=== PATIENT | female | born 1965 | race American Indian/Alaskan Native ===

== ENCOUNTER 2021-02-13 14:18 | Emergency (ER) | payer SELFPAY ==
--- NOTE | 2021-02-13 15:25 | EDM.PDOC ---
ED HPI GENERAL MEDICAL PROBLEM - General Chief Complaint: Lower Extremity Injury/Pain Stated Complaint: FELL DOWN STAIRS,HURT KNEE,LIVER ISSUES Time Seen by Provider: 02/13/21 15:10 Source of Information: Reports: Patient, Family History Limitations: Reports: No Limitations - History of Present Illness INITIAL COMMENTS - FREE TEXT/NARRATIVE: 55-year-old female who fell at their cabin about 2 hours ago onto her right knee, injuring her right knee, distal thigh and proximal lower leg. She has a small abrasion on her knee. She says her knee is "swollen". She is able to bear weight with pain. No other injury. Onset: Sudden Duration: Hour(s): (2 hours ago) Location: Reports: Lower Extremity, Right Worsens with: Reports: Other (Weightbearing is difficult but possible), Movement Associated Symptoms: Reports: Other (She is worried about her "fatty liver".) Right Upper Leg Pain Score (Numeric/FACES): 8 - Related Data Allergies Allergy/AdvReac Type Severity Reaction Status Date / Time Iodinated Contrast Media Allergy Rash Verified 02/13/21 14:44 Home Meds: Home Meds Alogliptin Benzoate [Alogliptin] 25 mg PO DAILY 02/13/21 [History] Cholecalciferol (Vitamin D3) [Vitamin D3] 2,000 unit PO ASDIRECTED 02/13/21 [History] Diloxitine 1 dose PO DAILY 02/13/21 [History] Fluticasone Propion/Salmeterol [Wixela 100-50 Inhub] 1 each IH ASDIRECTED 02/13/21 [History] Furosemide [Lasix] 20 mg PO BID 02/13/21 [History] Gabapentin [Neurontin] 600 mg PO QID 02/13/21 [History] Insulin Detemir [Levemir] 30 units SQ DAILY 02/13/21 [History] Magnesium Oxide/Mag AA Chelate [Magnesium] 600 mg PO BID 02/13/21 [History] Omeprazole 20 mg PO DAILY 02/13/21 [History] Spironolactone 50 mg PO BID 02/13/21 [History] hydrOXYzine HCL [Atarax] 0 mg PO TID 02/13/21 [History] lisinopriL [Lisinopril] 5 mg PO DAILY 02/13/21 [History] oxyCODONE 10 mg PO Q4HR 02/13/21 [History] oxyCODONE ER [OxyCONTIN] 15 mg PO Q12HR 02/13/21 [History] Past Medical History Cardiovascular History: Reports: Heart Failure, Hypertension Respiratory History: Reports: COPD Gastrointestinal History: Reports: Cholelithiasis, Cirrhosis, Fatty Liver, GERD Genitourinary History: Reports: Renal Calculus Musculoskeletal History: Reports: Arthritis, Back Pain, Chronic, Fibromyalgia Neurological History: Reports: Neuropathy, Diabetic Psychiatric History: Reports: Depression, PTSD Endocrine/Metabolic History: Reports: Diabetes, Type II Hematologic History: Reports: Other (See Below) Other Hematologic History: von willibrand. vit D deficiency Oncologic (Cancer) History: Reports: None Dermatologic History: Reports: None - Infectious Disease History Infectious Disease History: Reports: Chicken Pox, Other (See Below) Other Infectious Disease History: strep throat - Past Surgical History Respiratory Surgical History: Reports: Thoracentesis Other Respiratory Surgeries/Procedures: right lung several times GI Surgical History: Reports: Cholecystectomy, Other (See Below) Other GI Surgeries/Procedures: paracentesis Female Surgical History: Reports: Section, Hysterectomy Neurological Surgical History: Reports: Lumbar Spine Social & Family History - Tobacco Use Tobacco Use Status *Q: Unknown Ever Used Tobacco Years of Tobacco use: 35 Packs/Tins Daily: 1 - Caffeine Use Caffeine Use: Reports: None - Recreational Drug Use Recreational Drug Use: No Review of Systems - Review of Systems Review Of Systems: See Below Constitutional: Denies: Fever Respiratory: Denies: Shortness of Breath Cardiovascular: Denies: Chest Pain Musculoskeletal: Reports: Back Pain Skin: Reports: Bruising (Slight bruising around the knee with a superficial abrasion over the patella) ED EXAM, GENERAL - Physical Exam Exam: See Below Exam Limited By: No Limitations General Appearance: Alert, No Apparent Distress (Looks uncomfortable but not distressed) Eye Exam: Bilateral Eye: Normal Inspection Head: Atraumatic Respiratory/Chest: Lungs Clear Cardiovascular: Regular Rate, Rhythm Extremities: Other (Right knee was compared to the left knee, there is no effusion but there is tenderness to palpation across the patella and medial knee. There is increased pain with valgus stress to the knee) Neurological: Alert, Oriented Skin Exam: Warm, Dry, Other (Small abrasion is present over the right patellar area. A few healing scratches are present on the distal right leg from her recent cat scratch) Course - Vital Signs Last Recorded V/S: Last Vital Signs Temp 97.9 F 02/13/21 15:12 Pulse 97 02/13/21 15:12 Resp 20 02/13/21 15:12 BP 123/68 02/13/21 15:12 Pulse Ox 95 02/13/21 15:12 - Orders/Labs/Meds Orders: Active Orders 24 hr Category Date Time Status DME for Discharge [COMM] Stat Oth 02/13/21 15:51 Ordered - Re-Assessments/Exams Free Text/Narrative Re-Assessment/Exam: 02/13/21 15:51 Right knee and right femur x-rays were obtained which are negative for fracture. A 6 inch Doc wrap was applied to the leg and she was fitted for crutches. She can increase activity as tolerated and recheck next week if not improving satisfactorily. Departure - Departure Time of Disposition: 16:03 Disposition: Home, Self-Care 01 Clinical Impression: Contusion of right knee Qualifiers: Encounter type: initial encounter Qualified Code(s): S80.01XA - Contusion of right knee, initial encounter - Discharge Information Instructions: Contusion, [id number] Referrals: PCP,None [Primary Care Provider] - Forms: ED Department Discharge Care Plan Goals: Ice to sore areas will be helpful the next 1 to 2 days, wrap for support and comfort and increase activity as tolerated. Consider rechecking next week when you are home if not improving satisfactorily. Sepsis Event Note (ED) - Evaluation Sepsis Screening Result: No Definite Risk - Focused Exam Vital Signs: Vital Signs Temp Pulse Resp BP Pulse Ox 02/13/21 15:12 97.9 F 97 20 123/68 95 02/13/21 15:08 97.9 F 97 20 123/68 95 02/13/21 14:38 97.9 F 97 20 123/68 95 - My Orders Last 24 Hours: My Active Orders 02/13/21 15:51 DME for Discharge [COMM] Stat - Assessment/Plan Last 24 Hours: My Active Orders 02/13/21 15:51 DME for Discharge [COMM] Stat
--- NOTE | 2021-02-13 15:49 | CR ---
Femur Min 2V Rt, Knee 3V Rt CLINICAL HISTORY: Fall, pain FINDINGS: No femoral fracture is identified. There is some acetabular spurring. IMPRESSION: Mild acetabular spurring Femur Min 2V Rt, Knee 3V Rt CLINICAL HISTORY: Pain, fall FINDINGS: No acute fracture or dislocation is noted. There are no osseous lesions. There is mild narrowing of the medial joint space. Impression: Mild osteoarthritic change
== END 2021-02-13 16:08 | disposition home or self-care (01) ==
LOC: JP.ED 14:18
DX: S80.01XA Contusion of right knee, initial encounter (principal); J44.9 Chronic obstructive pulmonary disease, unspecified; I11.0 Hypertensive heart disease with heart failure; I50.9 Heart failure, unspecified; E11.40 Type 2 diabetes mellitus with diabetic neuropathy, unspecified; K21.9 Gastro-esophageal reflux disease without esophagitis; Z79.899 Other long term (current) drug therapy; Z91.041 Radiographic dye allergy status; W18.39XA Other fall on same level, initial encounter
CPT/HCPCS: 73552-26-LT; 73552-RT; 73562-26-RT; 73562-RT; 99283-25